=== PATIENT | female | born 1995 | race Caucasian/White ===

== ENCOUNTER 2018-06-20 09:18 | Emergency (ER) | payer OTHER ==
[~2018-06-20] VITALS: Ht 160 cm; Wt 68.9 kg
[2018-06-20 09:23] VITALS: BP 117/75; Ht 160 cm; Wt 68.9 kg
== END 2018-06-20 10:10 | disposition home or self-care (01) ==
LOC: ED 09:18
DX: S46.912A Strain of unspecified muscle, fascia and tendon at shoulder and upper arm level, left arm, initial encounter (principal); X58.XXXA Exposure to other specified factors, initial encounter; Y93.89 Activity, other specified; Y92.89 Other specified places as the place of occurrence of the external cause; Y99.8 Other external cause status

== ENCOUNTER 2019-01-27 04:03 | Emergency (ER) | payer SELFPAY ==
[~2019-01-27] VITALS: Ht 160 cm; Wt 78.0 kg
[2019-01-27 04:07] VITALS: Ht 160 cm; Wt 78.0 kg
[2019-01-27 05:23] LABS: BASOPHIL % 0.7 % (0-2); PLATELET COUNT 280 x10^3mcL (130-400); RED CELL DISTRIBUTION WIDTH 13.3 % (11.5-14.5)
[2019-01-27 06:00] LABS: UA SPECIFIC GRAVITY >=1.030 (1.005-1.035); microscopic required? YES; urine erythrocyte 3+ (NEGATIVE)
[2019-01-27 06:40] VITALS: BP 105/72
== END 2019-01-27 06:40 | disposition home or self-care (01) ==
LOC: ED 04:03
DX: O20.0 Threatened abortion (principal)
CPT/HCPCS: 36415